=== PATIENT | female | born 1955 | race Asian ===

== ENCOUNTER 2021-05-03 09:55 | Outpatient (CLI) | payer BC, SELFPAY ==
--- NOTE | ~2021-05-03 | MR_ITS ---
EXAMINATION: MR shoulder RT wo con DATE: 05/03/2021 11:00 INDICATION: Impingement syndrome of right shoulder. TECHNIQUE: Magnetic resonance imaging (MRI) of the right shoulder was performed without intravenous c ontrast. Sequences included axial PD-weighted FS FSE, coronal oblique PD-weighted FS FSE and T2-weigh lou FS FSE, and sagittal oblique T2-weighted FS FSE and T1-weighted FSE. COMPARISON: Right shoulder radiographs 01/10/2021 FINDINGS: Coracoacromial arch: The acromion undersurface is curved in morphology (type II). There is mild acromioclavicular joint os teoarthritis. There is mild subacromial/subdeltoid bursitis. Rotator cuff: There is mild supraspinatus and infraspinatus tendinopathy. Teres minor tendon is normal. Subscapular is tendon is normal. There is no asymmetric fatty atrophy of the rotator cuff muscle bellies. There i s degenerative cystic change in the greater tuberosity. Biceps tendon and glenoid labrum: Biceps tendon is in bicipital groove. Intra-articular biceps tendon is normal. There is a tear of sup erior labrum from 11:00 to 12:00 (SLAP tear). Fluid: There is a small glenohumeral joint effusion. Bones/cartilage: There is cartilage surface irregularity of glenoid and humeral head. IMPRESSION: 1. Mild rotator cuff tendinopathy. No tear. 2. Mild glenohumeral joint chondrosis. SLAP tear. 3. Mild acromioclavicular joint osteoarthritis. 4. Small glenohumeral joint effusion. 5. Mild subacromial/subdeltoid bursitis. Reviewed, dictated and finalized at location A. [employer]
== END 2021-05-03 09:56 | disposition home or self-care (01) ==
LOC: ANHIMG 10:04
PROVIDERS: PCP Family Medicine Adolescent Medicine; Visit Provider Orthopaedic Surgery
DX: M75.41 Impingement syndrome of right shoulder (principal); M19.011 Primary osteoarthritis, right shoulder; M75.81 Other shoulder lesions, right shoulder; S43.431A Superior glenoid labrum lesion of right shoulder, initial encounter; M25.411 Effusion, right shoulder; M75.51 Bursitis of right shoulder
CPT/HCPCS: 73221

== ENCOUNTER 2021-07-04 09:37 | Outpatient (CLI) | payer BC, SELFPAY ==
--- NOTE | 2021-07-04 09:45 | ECG_ITS ---
Measurements Intervals [place] Rate: 70 P: -9 NC: 200 QRS: 34 QRSD: 90 T: 28 QT: 390 QTc: 422 Interpretive Statements SINUS RHYTHM INCOMPLETE RIGHT BUNDLE BRANCH BLOCK BASELINE ARTIFACT- I, II, III, AVR, AVL, AVF BORDERLINE ECG Electronically Signed On 07-04-2021 10:25:51 ON SITE NURSE by Peña Mckinney D.O.
== END 2021-07-04 09:38 | disposition home or self-care (01) ==
LOC: ANHSURGERY 09:42
PROVIDERS: PCP Family Medicine Adolescent Medicine; Visit Provider Orthopaedic Surgery
DX: E78.2 Mixed hyperlipidemia (principal); Z01.818 Encounter for other preprocedural examination; I45.10 Unspecified right bundle-branch block
CPT/HCPCS: 93005

== ENCOUNTER 2021-07-06 03:26 | Day surgery (SDC) | payer BC, SELFPAY ==
--- NOTE | 2021-07-02 16:57 | SUR.PREOP ---
Report to the Outpatient Waiting Room, entrance under the green pavilion located off [facility], at time ____0600___ on date _07/06/21 . OR Time: . - You will be asked a series of questions to screen for COVID 19 for your protection. - A mask is required within the hospital. - No visitors are allowed at this time. Preoperative COVID Testing Requirements: No COVID Test needed if: (proof is required; if not received patient will have Rapid Test prior to entry) - Patient has received COVID Vaccine at least 14 days prior to procedure date or - Patient has positive COVID test result within last 90 days of surgery date. COVID Test needed if above criteria is not met If not COVID vaccinated a COVID test must be conducted within 72 hours of surgery and patient is asked to isolate self from time of testing until procedure. You will go to the [facility] for your COVID testing. The [facility] Testing site is located at the corner of [address] [facility]. You will only be called if COVID results are positive and your surgeon may reschedule your elective surgery date. Patients may have clear liquids (water, carbonated beverages, clear teas, apple juice) until 3 hours (0430) prior to surgery with a maximum of 20 ounces. - No food from midnight until time of surgery - Infants may have breast milk until 4 hours before surgery, infant formula 6 hours prior to surgery. - Children will be allowed to drink immediately following surgery. If applicable, please bring a bottle or sippy cup to assist with drinking. Juice, water, soda, and popsicles are readily available. For infants on formula, please bring formula the day of surgery. Pacifiers are allowed. Take the following medications with a SIP of water the morning of surgery: Medications to discontinue per physician Date to take last dose Please no make-up, nail georgian, hairspray, perfume, deodorant, or body powder the day of surgery. No jewelry (including any body piercings) or valuables the day of surgery, leave them at home. Please take a shower or bath the night before, or the morning of, surgery with an antibacterial soap. Wear comfortable, loose fitting clothing. Children are encouraged to wear pajamas. - Jewelry must be removed prior to entering the operating room. Rings and piercings that are not removed may be cut off. - The hospital will not accept responsibility for valuables. - Please leave all valuables, including medications, at home the day of surgery. If you are going home after surgery, a licensed lifter/driver must drive you home. - NO public transportation without another adult. - We recommend that an adult stay with you for 24 hours following discharge. - We also recommend that you do not drive, make important decision, drink alcoholic beverages, or take any drugs that were not prescribed by your health care provider for at least 24 hours after your discharge time. For Pediatric surgeries, we recommend two adults accompany the child home (only one inside the building at this time). Follow any additional instructions given to you from your surgeon. Telephone instructions given to and asked if any additional questions and then verbalized understanding. Patient advised to call surgeon office or pre surgery nurse liaison [phone] if any additional questions.
[2021-07-02 17:06] VITALS: BMI 25.2
[2021-07-06] VITALS (8 sets, daily range): BP systolic 100–135; BP diastolic 50–81; PULSE 64–75; RESP 14–19; TEMP 36.7; O2SAT 97–100
[2021-07-06] MEDS: LACTATED RINGERS 1,000 ML 30 ML IV CONT ×2 (06:43→08:36)
[2021-07-06] MEDS: KETOROLAC 15 MG/ML VIAL (*BKC) IV PUSH (06:43)
[2021-07-06] MEDS: ACETAMINOPHEN 500 MG TABLET 1000 MG PO (06:43)
--- NOTE | 2021-07-06 06:51 | WPDANESEPPF ---
Anes - Initial Pre Proc Eval Procedure: Operation Date: 07/06/21 07:30 Proposed Procedures p Right Shoulder Arthroscopic, Subacromial Decompression, Proceed as Indicated - Naeem Sol MD Date/Time: 07/06/21 06:51 Surgeon: Naeem Sol MD Pre Op Diagnosis: tendonitis of right rotator cuff Patient Data Age: 65 Gender: F Height: 1.6 m Weight: 66 kg Last Vital Signs Temp 36.7 C 07/06/21 06:25 Pulse 75 07/06/21 06:25 Resp 18 07/06/21 06:25 BP 135/81 07/06/21 06:25 Pulse Ox 98 07/06/21 06:25 Allergies Allergy/AdvReac Type Severity Reaction Status Date / Time Penicillins Allergy Unknown RASH Verified 07/06/21 06:29 Home Medications Medication Instructions Recorded Confirmed Type diclofenac sodium 75 mg 75 mg PO BID 06/19/21 07/06/21 History tablet,delayed release rosuvastatin 10 mg tablet 10 mg PO DAILY 06/19/21 07/06/21 History Patient hx anesthesia problems: none Family hx anesthesia problems: none Results Review: All pre-operative results and documents have been reviewed as part of the pre-operative evaluation. [facility] Past Medical History Medical History (Updated 07/06/21 @ 06:52 by Mark Carballo MD) Hyperlipidemia Surgical History Surgical History H/O section History of hysterectomy 2009, [facility] Family History Family History Father Gastric cancer Mother Heart disease Diabetes mellitus Social History Social History Tobacco type: cigarettes Additional smoking assessment comments: QUIT SMOKING ~2006, SMOKED ~20 YEARS ~1/2 PPD Alcohol intake: current Drinks per week: 1 Substance use: never Substance use type: does not use Living arrangements: with family Gender identity (if verbalized by the patient): Female Sexual Orientation (if Verbalized by the Patient): Straight or Heterosexual Spiritual care concerns: No Agree to blood products: Yes Anes - Eval Final PreProcedure Day of Procedure 07/06/21 06:51 Patient weight: overweight Heart: regular rate and rhythm Lungs: clear to auscultation Airway: Mallampati scale class II Neurological: alert and oriented Last oral intake: >/= 8 hours ASA classification: II Emergent: no Anesthetic plan: proceed Anesthesia type and monitoring: general ETT and standard monitoring Results Review: All pre-operative results and documents have been reviewed as part of the pre-operative evaluation. Informed Consent: The patient's anesthetic plan and its attendant risks and benefits were discussed with the patient/family/POA. Questions were solicited and answers provided to the satisfaction of the patient/family/POA.
--- NOTE | 2021-07-06 07:24 | WPDHPUPDATE1 ---
History and Physical Update Update Date/Time: 07/06/21 07:24 History and Physical has been reviewed, including an updated exam of the patient. There are NO changes in the patient's condition. Risks, benefits, and alternatives have been discussed and questions answered. Patient agrees to proceed with procedure.
--- NOTE | 2021-07-06 07:26 | WPDANESPNB ---
Anes - Peripheral Nerve Block Date/Time: 07/06/21 07:26 I have discussed with the patient/family/POA the placement of a peripheral nerve block for post-operative pain management, including associated risks, benefits, complications, and side effects. Alternative methods of post-operative analgesia were detailed. Questions were solicited and answers provided to the satisfaction of the patient/family/POA. Time-Out: A pre-procedural Time-Out was completed immediately before starting the procedure and confirmed: Patient Identification, Site, Procedure, Patient Position and the Availability of Requisite Equipment. Clinical Indications: Acute post-operative pain management requested by the operative surgeon. Nerve Block Insertion Note Anes-nerve block: interscalene right Patient position: supine Needle: 22 gauge, stimulating, insulated echogenic needle. Needle length: 50 mm Technique: ultrasound Injectate: bupivacaine 0.5% with epi 5 mcg/ml (25) and dexamethasone (mg) (8) Observations: tolerated well Complications: none Procedure start time:: 720 Procedure end time:: 727
[2021-07-06] MEDS: ceFAZolin 2 GM/D5W 50 ML 2 GM/50 ML BAG IVPB (07:28)
--- NOTE | 2021-07-06 08:28 | P.OP_ITS ---
Procedure Note - Detailed Date of Procedure 07/06/21 Pre-op Diagnosis 1. Tendonitis of right rotator cuff 2. Impingement syndrome Post-op Diagnosis same Procedure Performed 1. Arthroscopic subacromial debridement and decompression Surgeon Naeem Sol MD [employer] Assistant Judith Zhu PA-C Anesthesia general and regional Findings Low grade bursal tear <15%. Hyperemia. No SLAP tear. Clear evidence for subacromial impingement. Description of Procedure Patient was given an interscalene block in the holding area. Preoperative antibiotics were given. The patient was brought to the operating room. Careful positioning in the beach chair was accomplished. The head neck were carefully positioned. A small bump was placed under the left shoulder. The shoulder was examined. The shoulder was prepped and draped in the usual sterile fashion. Standard posterior and anterior arthroscopic portals were established. The shoulder was inspected. No debridement was necessary. The cuff was intact on the articular side. Significant diffuse hyperemia of the capsule and biceps without tendinosis, SLAP tear, or capsule contracture. Attention was turned to the subacromial space. A complete bursectomy was performed. There was clear bursal thickening, and fraying of the undersurface of the acromial and CA ligament, with a corresponding low grade tear of the bursal side supraspinatus. The acromion was clearly visualized. The coracoacromial ligament was released. Careful acromioplasty was performed, while protecting the deltoid attachment. Loose bone fragments were carefully irrigated from the joint. The arthroscopic instruments were removed. The wounds were closed with interrupted 3-0 Monocryl suture followed by Steri-Strips. A sterile dressing was applied with a sling. The patient was extubated and brought to the recovery room in stable condition. There were no complications. Estimated Blood Loss 5 Complications No immediate complications Condition stable Disposition same day
--- NOTE | 2021-07-06 09:05 | SUR.PHASEI ---
1403 Dr Sol bedside talking to patient
--- NOTE | 2021-07-06 09:17 | SUR.PHASEI ---
PT AWAKE AND ALERT. DENIES PAIN. RESTING QUIETLY.
== END 2021-07-06 10:30 | disposition home or self-care (01) ==
PROVIDERS: PCP Family Medicine Adolescent Medicine; Visit Provider Orthopaedic Surgery
PROC: (CPT 29805; principal; 2021-07-06 07:30)
DX: M75.101 Unspecified rotator cuff tear or rupture of right shoulder, not specified as traumatic (principal); M75.41 Impingement syndrome of right shoulder; G89.18 Other acute postprocedural pain; E78.5 Hyperlipidemia, unspecified; Z87.891 Personal history of nicotine dependence
CPT/HCPCS: 29822; 64415; A4565; A9270; J0690; J1100; J1885; J2250; J2405; J2704; J2710; J3010; J7120

== ENCOUNTER 2022-02-19 00:46 | Day surgery (SDC) | payer BC, SELFPAY ==
[2022-01-31 12:29] VITALS: BMI 24.8
[2022-02-19 08:32] VITALS: BP 140/82; PULSE 76; RESP 20; TEMP 36.7; O2SAT 100; BMI 24.0
[2022-02-19] MEDS: LACTATED RINGERS 1,000 ML 150 ML IV CONT (08:42)
--- NOTE | 2022-02-19 08:44 | PM.HPGS ---
History of Present Illness History of Present Illness Consent: Risks, benefits, and alternatives have been discussed and questions answered. Patient agrees to proceed with procedure. Chief complaint: epigastric pain, neoplasm screening Narrative: Andrew Flores is a 66 year old female Referred for colonoscopy an EGD. Patient desires neoplasia screening colonoscopy. Current weight appetite bowel movements are normal. She denies abdominal pain. She has had no bleeding. Patient also desires EGD. She has intermittent epigastric pain that will worsen on to eating spicy foods. She has tried pantoprazole 40mg p.o. daily over the last 3 months. This seems to help. She also improves on avoiding spicy foods. She is quite concerned about possible H pylori infection. Family history is significant her father had gastric carcinoma. EGD is requested will be performed today. Patient denies any weight loss or bleeding. Review of Systems Review of Systems: Review of systems noncontributory. [facility] Past Medical History Medical History Hyperlipidemia Surgical History Surgical History H/O section History of hysterectomy 2009, [facility] Family History Family History Father Gastric cancer Mother Heart disease Hypertension Sibling Diabetes mellitus Social History Social History Years smoked: 20 Smoking status: Never smoker Tobacco type: cigarettes Additional smoking assessment comments: QUIT SMOKING ~2006, SMOKED ~20 YEARS ~1/2 PPD Alcohol intake: current Drinks per week: 1 Substance use: never Substance use type: does not use Living arrangements: with family Gender identity (if verbalized by the patient): Female Sexual Orientation (if Verbalized by the Patient): Straight or Heterosexual Spiritual care concerns: No Agree to blood products: Yes Meds Home Medications and Allergies Home Medications Medication Instructions Recorded Confirmed Type ergocalciferol (vitamin D2) 1,250 See Rx Instructions .Route 12/03/21 02/04/22 Rx mcg (50,000 unit) capsule .COMPLEX #3 caps rosuvastatin 10 mg tablet See Rx Instructions .Route 12/31/21 02/04/22 Rx .COMPLEX #30 tabs pantoprazole 40 mg tablet,delayed 40 mg PO QAM #30 tabs 01/23/22 02/04/22 Rx release diclofenac sodium 75 mg 75 mg PO DAILY 01/31/22 02/04/22 History tablet,delayed release ciprofloxacin HCl 500 mg tablet 500 mg PO BID #14 tabs 02/13/22 Rx Allergies Allergy/AdvReac Type Severity Reaction Status Date / Time Penicillins Allergy Unknown RASH Verified 02/19/22 08:29 Vital Signs Vital Signs - 24 hr 02/19/22 08:32 Temperature 98.0 F Pulse Rate 76 Respiratory Rate 20 Blood Pressure 140/82 Pulse Oximetry 100 Oxygen Delivery Room Air Exam Narrative: Physical exam reveals patient to be alert. Vital signs stable. HEENT exam is unremarkable. Patient is anicteric. Lungs are clear to auscultation and percussion. Heart is without murmur or extra sounds. Abdomen bowel sounds are present soft nontender with no organomegaly. Digital external rectal exam is normal. Assessment and Plan Assessment and plan (1) Family history of gastric cancer: Code(s): Z80.0 - Family history of malignant neoplasm of digestive organs Status: Acute Assessment and Plan: Patient is father had gastric cancer. Now that she has epigastric pain. Plan for E EGD at this. Further recommend patient is may be given after endoscopy. (2) Encounter for screening for colorectal malignant neoplasm: Code(s): Z12.11 - Encounter for screening for malignant neoplasm of colon; Z12.12 - Encounter for screening for malignant neoplasm of rectum Status: Acute Assessment and Plan: Screenin
--- NOTE | 2022-02-19 08:53 | P.PNAN_ITS ---
Anes - Initial Pre Proc Eval Procedure: Operation Date: 02/19/22 09:30 Proposed Procedures p Esophagogastroduodenoscopy & Screening Colonoscopy - Jason Sprague MD Date/Time: 02/19/22 08:53 Surgeon: Jason Sprague MD Pre Op Diagnosis: epigastric pain, neoplasm screening Patient Data Age: 66 Gender: F Height: 1.6 m Weight: 61.6 kg Last Vital Signs Temp 98.0 F 02/19/22 08:32 Pulse 76 02/19/22 08:32 Resp 20 02/19/22 08:32 BP 140/82 02/19/22 08:32 Pulse Ox 100 02/19/22 08:32 O2 Del Method Room Air 02/19/22 08:32 Allergies Allergy/AdvReac Type Severity Reaction Status Date / Time Penicillins Allergy Unknown RASH Verified 02/19/22 08:29 Home Medications Medication Instructions Recorded Confirmed Type ergocalciferol (vitamin D2) 1,250 See Rx Instructions .Route 12/03/21 02/04/22 Rx mcg (50,000 unit) capsule .COMPLEX #3 caps rosuvastatin 10 mg tablet See Rx Instructions .Route 12/31/21 02/04/22 Rx .COMPLEX #30 tabs pantoprazole 40 mg tablet,delayed 40 mg PO QAM #30 tabs 01/23/22 02/04/22 Rx release diclofenac sodium 75 mg 75 mg PO DAILY 01/31/22 02/04/22 History tablet,delayed release ciprofloxacin HCl 500 mg tablet 500 mg PO BID #14 tabs 02/13/22 Rx Patient hx anesthesia problems: none Family hx anesthesia problems: none Results Review: All pre-operative results and documents have been reviewed as part of the pre- operative evaluation. [facility] Past Medical History Medical History Hyperlipidemia Surgical History Surgical History H/O section History of hysterectomy 2009, [facility] Family History Family History Father Gastric cancer Mother Heart disease Hypertension Sibling Diabetes mellitus Social History Social History Years smoked: 20 Smoking status: Never smoker Tobacco type: cigarettes Additional smoking assessment comments: QUIT SMOKING ~2006, SMOKED ~20 YEARS ~1/2 PPD Alcohol intake: current Drinks per week: 1 Substance use: never Substance use type: does not use Living arrangements: with family Gender identity (if verbalized by the patient): Female Sexual Orientation (if Verbalized by the Patient): Straight or Heterosexual Spiritual care concerns: No Agree to blood products: Yes Anes - Eval Final PreProcedure Day of Procedure 02/19/22 08:53 Patient weight: normal Heart: regular rate and rhythm Lungs: clear to auscultation Airway: Mallampati scale class II Neurological: alert and oriented Last oral intake: >/= 8 hours ASA classification: II Emergent: no Anesthetic plan: proceed Anesthesia type and monitoring: general GIVS and standard monitoring Results Review: All pre-operative results and documents have been reviewed as part of the pre- operative evaluation. Informed Consent: The patient's anesthetic plan and its attendant risks and benefits were discussed with the patient/family/POA. Questions were solicited and answers provided to the satisfaction of the paulo
--- NOTE | 2022-02-19 09:23 | SUR.OPER ---
EGD ended at 916. Colonoscopy started at 922.
[2022-02-19 09:35] VITALS: BP 92/57; PULSE 69; RESP 15; O2SAT 97
[2022-02-19 09:45] VITALS: BP 90/60; PULSE 61; RESP 14; O2SAT 97
[2022-02-19 09:55] VITALS: BP 112/65; PULSE 58; RESP 13; O2SAT 100
== END 2022-02-19 10:01 | disposition home or self-care (01) ==
PROVIDERS: PCP Family Medicine Adolescent Medicine; Visit Provider Internal Medicine Gastroenterology
PROC: 0DJ08ZZ Inspection of Upper Intestinal Tract, Via Natural or Artificial Opening Endoscopic (ICD-10-PCS; CPT 43235; principal; 2022-02-19 09:30)
DX: Z12.11 Encounter for screening for malignant neoplasm of colon (principal); K64.8 Other hemorrhoids; R10.13 Epigastric pain; E78.5 Hyperlipidemia, unspecified
CPT/HCPCS: 45378; 43239; 87081; J2704; J7120

== ENCOUNTER → 2022-03-18 10:03 | Outpatient (CLI) | payer BC, SELFPAY ==
--- NOTE | ~2022-03-18 | MM_ITS ---
EXAMINATION: MM screening davey BI w nigel HISTORY: Screening TECHNIQUE: Craniocaudal and mediolateral oblique 3-D tomosynthesis images were obtained and synthetic 2-D images were generated. CAD analysis was submitted and interpreted. COMPARISON: Comparison to multiple prior studies sequentially, with oldest reviewed study dated 07/2012. BREAST PARENCHYMAL COMPOSITION: The breasts are heterogeneously dense, which may obscure small masses . FINDINGS: There is no evidence of suspicious mass, calcification, or architectural distortion to sugg est malignancy in either breast. There has been no suspicious interval change. IMPRESSION: 1. No mammographic evidence of malignancy. 2. Recommend routine screening mammography in one year. BI-RADS Category 1: Negative Reviewed, dictated and finalized at location A.
--- NOTE | ~2022-03-18 | DEXA_ITS ---
Bone Density Report Name: NICHOLE GARG Age: 66 Sex: Female Ethnicity: Date of : 1955 Indication: osteopenia; hysterectomy; postmenopausal Referring Provider: DENEEN LOUIS Study: Bone densitometry was performed. Exam Date: March 18, 2022 Accession number: [id number] Bone Density: Region BMD T-score Z-score Classification AP Spine (L1-L4) 0.862 -1.7 0.1 Osteopenia Femoral Neck (Left) 0.718 -1.2 0.3 Osteopenia Total Hip (Left) 0.866 -0.6 0.6 Normal Femoral Neck (Right) 0.640 -1.9 -0.4 Osteopenia Total Hip (Right) 0.805 -1.1 0.1 Osteopenia Total Hip Mean 0.836 -0.9 0.4 Normal World Health Organization criteria for BMD impression classify patients as: Normal (T-score at or above -1.0), Osteopenia (T-score between -1.0 and -2.5), or Osteoporosis (T-score at or below -2.5). 10-year Fracture Risk(1): Major Osteoporotic Fracture 5.3% Hip Fracture 0.7% Reported Risk Factors: [place] (), Neck BMD=0.640, BMI=23.4 (1) FRAX(R) Version 3.08. Fracture probability calculated for an untreated patient. Fracture probability may be lower if the patient has received treatment. Previous Exams: Region Exam Age BMD T-score BMD Change BMD Change Date g/cm2 vs Baseline vs Previous AP Spine(L1-L4) 03/18/2022 66 0.862 -1.7 -0.064* -0.064* 10/19/2012 57 0.925 -1.1 Total Hip(Left) 03/18/2022 66 0.866 -0.6 -0.036* -0.036* 10/19/2012 57 0.903 -0.3 Total Hip(Right) 03/18/2022 66 0.805 -1.1 -0.071* -0.071* 10/19/2012 57 0.876 -0.5 *Denotes significance at 95% confidence level, LSC for AP Spine = 0.022 g/cm2, LSC for Total Hip = 0.027 g/cm2 Clinical Information Provided by Patient: Has used the following medications: Vitamin D Has the following medical conditions: Hysterectomy Patient maximum height was 64 Menopause Age: 51 Does not regularly consume dairy products Drinks caffeinated beverages Onset of menses at age 18 Number of children 2 Impression: The patient has low bone mass, based on the Right Femoral Neck T-score. The patient has an estimated ten-year risk of hip fracture of 0.7% and an estimated ten-year risk of major fracture of 5.3%, based on the WHO FRAX algorithm. The BMD for the AP Spine(L1-L4) decreased, changing by -0.064 since the last DXA exam. The BMD for the Total Hip(Left) decreased, changing by -0.036 since the last DXA exam. The BMD for the Total Hip
== END ==
PROVIDERS: PCP Family Medicine Adolescent Medicine; Visit Provider Family Medicine Adolescent Medicine
DX: Z12.31 Encounter for screening mammogram for malignant neoplasm of breast (principal); Z78.0 Asymptomatic menopausal state; M85.88 Other specified disorders of bone density and structure, other site; M85.852 Other specified disorders of bone density and structure, left thigh; M85.851 Other specified disorders of bone density and structure, right thigh
CPT/HCPCS: 77063; 77067; 77080

== ENCOUNTER → 2022-11-06 08:16 | Outpatient (CLI) | payer BC, SELFPAY | PROVIDERS: PCP Family Medicine Adolescent Medicine; Visit Provider Family Medicine Adolescent Medicine | DX: M25.562 Pain in left knee (principal) | CPT/HCPCS: 73562 ==

== ENCOUNTER → 2023-05-16 10:40 | Outpatient (CLI) | payer BC, SELFPAY ==
--- NOTE | ~2023-05-16 | MM_ITS ---
EXAMINATION: MM screening davey BI w nigel HISTORY: Screening mammogram TECHNIQUE: Craniocaudal and mediolateral oblique 3-D tomosynthesis images were obtained and synthetic 2-D images were generated. CAD analysis was submitted and interpreted. COMPARISON: 03/18/2022, 07/07/2015 bilateral screening mammogram examinations BREAST PARENCHYMAL COMPOSITION: The breasts are heterogeneously dense, which may obscure small masses . FINDINGS: There are possible left breast masses. Diagnostic left mammogram and left breast ultrasoun d are recommended.] No suspicious mass, architectural distortion, malignant, skin thickening or retraction of the right b reast is detected. IMPRESSION: 1. Possible left breast masses 2. Diagnostic left mammogram and left breast ultrasound examination are recommended BI-RADS Category 0: Incomplete: Needs additional imaging evaluation. Reviewed, dictated and finalized at location A. HEADER IMPRESSION: 1. Possible left breast masses 2. Diagnostic left mammogram and left breast ultrasound examination are recomme nded BI-RADS Category 0: Incomplete: Needs additional imaging evaluation.
== END ==
PROVIDERS: PCP Family Medicine Adolescent Medicine; Visit Provider Family Medicine Adolescent Medicine
DX: Z12.31 Encounter for screening mammogram for malignant neoplasm of breast (principal); R92.8 Other abnormal and inconclusive findings on diagnostic imaging of breast
CPT/HCPCS: 77063; 77067

== ENCOUNTER → 2023-06-09 08:18 | Outpatient (CLI) | payer BC, SELFPAY ==
--- NOTE | ~2023-06-09 | MMUS_ITS ---
EXAMINATION: MM diagnostic davey LT w nigel, US breast LT limited HISTORY: Possible left breast masses on screening mammogram TECHNIQUE: Additional 3-D tomosynthesis images of the left breast were performed and synthetic 2-D im ages were generated. CAD analysis was submitted and interpreted. High resolution limited left breast ultrasound was performed. COMPARISON: 05/16/2023, 03/18/2022, 07/07/2015 FINDINGS: MAMMOGRAPHIC FINDINGS: There is a 5 mm irregular equal density mass in the middle third of the upper outer quadrant of the b reast at the 2:00 location, 6 cm from the nipple. There is a return to baseline fibroglandular appear ance with spot compression of the subareolar left breast in the area questioned on screening mammogra m. There is a mammographically stable 10 mm obscured mass at the 5:00 location, 4 cm from the nipple. ULTRASOUND: There is a 5 mm x 4 mm oval, hypoechoic, not parallel mass with indistinct margins at the 2:00 locati on, 6 cm from the nipple which demonstrates internal vascularity but no definite posterior features. Multiple small circumscribed, oval, parallel, hypoechoic masses are seen in the upper outer quadrant of the breast which measure up to 3 mm. There is a 10 mm x 5 mm oval, circumscribed, parallel, hypoec hoic mass with no posterior features or internal vascularity at the 5:00 location, 2 cm from the nipp le corresponding to the mammographically stable mass. IMPRESSION: 1. Indeterminate mass in the upper outer quadrant of the left breast at the 2:00 location. 2. Ultrasound-guided biopsy is recommended. BI-RADS category 4, suspicious findings. Reviewed, dictated and finalized at location A. MENT MAN IMPRESSION: 1. Indeterminate mass in the upper outer quadrant of the left breast at the 2:0 0 location. 2. Ultrasound-guided biopsy is recommended. BI-RADS category 4, suspicious findings.
== END ==
PROVIDERS: PCP Family Medicine Adolescent Medicine; Visit Provider Family Medicine Adolescent Medicine
DX: R92.8 Other abnormal and inconclusive findings on diagnostic imaging of breast (principal)
CPT/HCPCS: 76642; 77061; 77065; G0279

== ENCOUNTER 2023-06-18 09:10 | Outpatient (CLI) | payer BC, SELFPAY ==
--- NOTE | ~2023-06-18 | MMUS_ITS ---
US breast biopsy LT w image, MM post biopsy invasive LT EXAMINATION: US GUIDED NEEDLE BIOPSY WITH VACUUM ASSISTANCE DATE: 06/18/2023 11:11 HOSIERY OPERATOR INDICATION: Mass seen in the left breast on prior examination. Ultrasound-guided core biopsy is requ ested to evaluate for malignancy. TECHNIQUE AND FINDINGS: The risks and potential benefits of the procedure were discussed with the patient, and written inform ed consent was obtained. After sterile preparation of the left breast, 1% lidocaine was utilized for local anesthesia. 1% lidocaine with epinephrine was used for deep anesthesia. A 10G vacuum-assisted biopsy gun needle was advanced through to the outer edge of the region of inter est from a superior approach utilizing sonographic guidance. A total of 4 tissue core samples were o btained through the lesion. An Inrad tissue marker clip was then placed at the biopsy site. Hemostas is was achieved. The patient tolerated procedure well and there was no evidence of immediate complication. The patien t was given verbal instructions partly is from the department. Left breast mammograms to document ti ssue marker clip placement. The tissue samples were submitted to surgical pathology for histologic an alysis. IMPRESSION: 1. Successful ultrasound-guided vacuum-assisted biopsy of left breast mass with tissue marker placem ent. Please refer to pathology report for histologic analysis. Reviewed, dictated and finalized at location A. ERY OPERATOR IMPRESSION: 1. Successful ultrasound-guided vacuum-assisted biopsy of left breast mass wit h tissue marker placement. Please refer to pathology report for histologic anal ysis.
== END 2023-06-18 09:11 | disposition home or self-care (01) ==
PROVIDERS: PCP Family Medicine Adolescent Medicine; Visit Provider Family Medicine Adolescent Medicine
DX: C50.412 Malignant neoplasm of upper-outer quadrant of left female breast (principal)
CPT/HCPCS: 19083; 88305; 88342; 88365; A4648

== ENCOUNTER 2023-07-02 14:35 | Outpatient (CLI) | payer BC, SELFPAY ==
--- NOTE | ~2023-07-02 | XR_ITS ---
XR elbow RT 2V DATE: 07/02/2023 14:50 INDICATION: Chronic pain. Medial epicondylitis. TECHNIQUE: AP and lateral views COMPARISON: None FINDINGS: No fracture or dislocation or joint effusion. No periosteal reaction or bone destruction. IMPRESSION: Negative Reviewed, dictated and finalized at location B. OR AIR DIRECTOR IMPRESSION: Negative
== END 2023-07-02 14:36 | disposition home or self-care (01) ==
LOC: ANHIMG 14:37
PROVIDERS: PCP Family Medicine Adolescent Medicine; Visit Provider Orthopaedic Surgery
DX: M77.01 Medial epicondylitis, right elbow (principal)
CPT/HCPCS: 73070

== ENCOUNTER 2024-05-05 11:14 | Outpatient (CLI) | payer BC, SELFPAY ==
--- NOTE | ~2024-05-05 | XR_ITS ---
Right elbow Technique: AP and lateral views were obtained. Clinical History: Medial epicondylitis COMPARISON: 07/02/2023 Findings: No acute fracture or dislocation is seen. Osseous alignment is anatomic. Joint spaces are p reserved. There is no displacement of the fat pads, and soft tissues are unremarkable. Impression: Unremarkable radiographs. Reviewed, dictated and finalized at location . ING MACHINE OPERATOR Impression: Unremarkable radiographs.
== END 2024-05-05 11:15 | disposition home or self-care (01) ==
PROVIDERS: PCP Family Medicine Adolescent Medicine; Visit Provider Orthopaedic Surgery
DX: M77.01 Medial epicondylitis, right elbow (principal)
CPT/HCPCS: 73070

== ENCOUNTER 2024-06-03 00:47 | Day surgery (SDC) | payer BC, SELFPAY ==
--- NOTE | 2024-05-24 12:24 | PC.NURSE ---
Report to the Outpatient Waiting Room, entrance under the green pavilion located off [facility], at time _11 am on date _06/03/24 . Planned Procedure Time: __1:00 pm .? Time changes happen often and if your time is changed the preop area will call you the afternoon before. - You and your visitor will be asked to self-screen and do not enter if you have any COVID symptoms. Please call surgeon if you need to reschedule. - A mask is optional within the hospital at this time. Patients may have clear liquids (water, carbonated beverages, clear teas, apple juice) until 3 hours prior to surgery(10 am) with a maximum of 20 ounces. - No food from midnight until time of surgery and no smoking. This includes no chewing gum, candy or mints. - Infants may have breast milk until 4 hours before surgery, formula 6 hours prior to surgery. - Children will be allowed to drink immediately following surgery.? If applicable, please bring a bottle or sippy cup to assist with drinking. Juice, water, soda, and popsicles are readily available.? For infants on formula, please bring formula the day of surgery.? Pacifiers are allowed. Take only the following medications with a SIP of water on the morning of surgery: __NONE DO NOT STOP ANY OF YOUR OTHER PRESCRIPTION MEDICATIONS PRIOR TO SURGERY EXCEPT THE FOLLOWING Medications to discontinue per physician ___HOLD ASPIRIN AND IBUPROFEN 7 DAYS PRE OP LAST DOSE 05/26/24 HOLD ALL VITAMINS 3 DAYS PRE OP LAST DOSE 05/30/24 MAY TAKE TYLENOL IF NEEDED FOR PAIN Please no make-up, nail bangladeshi, hairspray, perfume, deodorant, or body powder the day of surgery.? No jewelry (including any body piercings) or valuables the day of surgery, leave them at home.? Please take a shower or bath the night before, or the morning of, surgery with an antibacterial soap.? Wear comfortable, loose fitting clothing.? Children are encouraged to wear pajamas. - Jewelry must be removed prior to entering the operating room.? Rings and piercings that are not removed may be cut off. - The hospital will not accept responsibility for valuables.? - Please leave all valuables, including medications, at home the day of surgery. If you are going home after surgery, a licensed pole truck driver must drive you home.? - NO public transportation without another adult if you receive anesthesia. - We recommend that an adult stay with you for 24 hours following discharge. - We also recommend that you do not drive, make important decision, drink alcoholic beverages, or take any drugs that were not prescribed by your health care provider for at least 24 hours after your discharge time. Follow any additional instructions given to you from your surgeon. Telephone instructions given to __PATIENT and asked if any additional questions and then verbalized understanding. Patient advised to call surgeon office or pre surgery nurse liaison [phone] if any additional questions.
[2024-05-24 12:39] VITALS: BMI 24.0
[2024-06-03] VITALS (8 sets, daily range): BP systolic 102–135; BP diastolic 60–75; PULSE 64–88; RESP 13–19; TEMP 36.1–36.3; O2SAT 96–100
--- NOTE | 2024-06-03 07:18 | WPDHPUPDATE1 ---
History and Physical Update Update Date/Time: 06/03/24 07:18 History and Physical has been reviewed, including an updated exam of the patient. There are NO changes in the patient's condition. Risks, benefits, and alternatives have been discussed and questions answered. Patient agrees to proceed with procedure.
--- NOTE | 2024-06-03 11:18 | P.PNAN_ITS ---
Anes - Initial Pre Proc Eval Procedure: Operation Date: 06/03/24 13:00 Proposed Procedures p Right Medial Epicondyle Debridement - Naeem Sol MD Date/Time: 06/03/24 11:18 Surgeon: Naeem Sol MD Pre Op Diagnosis: Right medial epicondylitis Patient Data Age: 68 Gender: F Height: 1.63 m Weight: 63.6 kg Allergies Allergy/AdvReac Type Severity Reaction Status Date / Time Penicillins Allergy Unknown RASH Verified 05/24/24 12:16 Home Medications ?Medication ?Instructions ?Recorded ?Confirmed ?Type triamcinolone acetonide 0.1 % 1 applic topical TID #30 grams 11/20/22 05/24/24 Rx topical cream aspirin 81 mg tablet,delayed 81 mg PO DAILY #90 tabs 04/07/23 05/24/24 Rx release (Adult Aspirin Regimen) rosuvastatin 10 mg tablet 10 mg PO DAILY #90 tabs 09/03/23 05/24/24 Rx ergocalciferol (vitamin D2) 1,250 See Rx Instructions .Route 12/15/23 05/24/24 Rx mcg (50,000 unit) capsule .COMPLEX #3 caps anastrozole 1 mg tablet 1 mg PO DAILY 05/24/24 05/24/24 History ascorbic acid (vitamin C) 500 mg 1 g PO DAILY 05/24/24 05/24/24 History tablet (C-500) ibuprofen 200 mg tablet (Advil) 400 mg PO Q6H pain 05/24/24 05/24/24 History hydrocodone 5 mg-acetaminophen 325 1 - 2 tablet PO Q4-6H PRN pain 7 06/03/24 Rx mg tablet days #30 tabs Patient hx anesthesia problems: none Family hx anesthesia problems: none Results Review: All pre-operative results and documents have been reviewed as part of the pre- operative evaluation. PMFSH Past Medical History Medical History Hyperlipidemia Surgical History Surgical History History of arthroscopic surgery of shoulder Right shoulder, July 2021. H/O section History of hysterectomy 2009, [facility] Family History Family History Father Gastric cancer Mother Heart disease Hypertension Sibling Diabetes mellitus Social History Social History Smoking packs per day: 0.5 Smoking cigarettes per day: 10.0 Years smoked: 20 Smoking pack-years: 10.00 Smoking status: Former smoker Tobacco type: cigarettes Smoking end date: 05/19/06 Additional smoking assessment comments: QUIT SMOKING ~2006, SMOKED ~20 YEARS ~1/2 PPD Alcohol intake: current Drinks per week: 1 Substance use: never Substance use type: does not use Do You Feel Safe in your Home?: Yes Lack of Transportation: No Lack of Food: Never True Current Housing: I Have Housing Concerned About Future Housing: No Difficulty Paying Gas/Electric Bills: No Difficulty Paying for Meds: No Currently Unemployed: No Education: High School Diploma/GED Difficulty w/ Childcare or Family Care: No Living arrangements: with family Occupation/Education: unemployed Gender identity (if verbalized by the patient): Female Sexual Orientation (if Verbalized by the Patient): Straight or Heterosexual Spiritual care concerns: No Agree to blood products: Yes Anes - Eval Final PreProcedure Day of Procedure 06/03/24 11:18 Patient weight: normal Heart: regular rate and rhythm Lungs: clear to auscultation Airway: Mallampati scale class II Neurological: alert and oriented Last oral intake: >/= 8 hours ASA classification: III Emergent: no Anesthetic plan: proceed Anesthesia type and monitoring: general LMA and standard monitoring Results Review: All pre-operative results and documents have been reviewed as part of the pre- operative evaluation. Informed Consent: The patient's anesthetic plan and its attendant risks and benefits were discussed with the patient/family/POA. Questions were solicited and answers provided to the satisfaction of the patient/family/POA.
[2024-06-03] MEDS: ACETAMINOPHEN 500 MG TABLET 1000 MG PO (11:55)
[2024-06-03] MEDS: LACTATED RINGERS 1,000 ML 30 ML IV CONT (12:10)
[2024-06-03] MEDS: KETOROLAC 15 MG/ML VIAL (*BKC) IV PUSH (12:42)
[2024-06-03] MEDS: ceFAZolin 2 GM/D5W 50 ML 2 GM/50 ML BAG IVPB (12:50)
[2024-06-03] MEDS: BUPIVACAINE/EPINEPHRINE 0.5% 50 ML VIAL 20 ML INFILTRATE (13:14)
--- NOTE | 2024-06-03 16:18 | W.PM.PROC2 ---
Procedure Note - Detailed Date of Procedure 06/03/24 Pre-op Diagnosis Right elbow medial epicondylitis Post-op Diagnosis Same Procedure Performed Right elbow medial epicondylitis debridement Surgeon Naeem Sol MD Anesthesia General Indications Recalcitrant disease for over 1 year despite conservative treatment including physical therapy, injections, and anti-inflammatory medication. Findings Small spur at the the site of maximal pain and tendon degeneration. Description of Procedure The patient was brought to the operating room. Preoperative antibiotics were given. A general anesthetic was administered. The arm was prepped and draped in the usual sterile fashion with a well-padded tourniquet on the arm. The limb was exsanguinated and the tourniquet inflated to 225 milliliters of mercury. A longitudinal incision was created over the pathological site at the medial epicondyle. The flexor pronator mass was identified. A split was taken down through the interval between the pronator teres and the flexor carpi the radialis. Degenerative pathologic tendon was identified and excised sharply. A tiny spur was palpable at the site of insertion of this tissue. It was debrided with the rongeur and abraded with a rasp. The scratch test was to confirm complete excision of pathologic tissue. The ulnar nerve was assessed for stability. It was left in situ. The flexor pronator muscle defect was repaired with #1 Vicryl suture. The skin was closed with interrupted 3-0 Monocryl suture followed by running 4-0 Monocryl suture and Steri-Strips. Sterile dressing was applied with a wrist splint. The patient was extubated and brought to the recovery room in stable condition. Estimated Blood Loss 5 Drains No Packing No Pathology None sent Complications No immediate complications Condition Stable Disposition PACU [facility] Billing Surgery - Charge Forward: Surgery Billing
== END 2024-06-03 15:45 | disposition home or self-care (01) ==
PROVIDERS: PCP Family Medicine Adolescent Medicine; Visit Provider Orthopaedic Surgery
PROC: (CPT 24110; principal; 2024-06-03 13:00)
DX: M77.01 Medial epicondylitis, right elbow (principal); Z87.891 Personal history of nicotine dependence
CPT/HCPCS: 24358; A9270; J0690; J1100; J1885; J2003; J2250; J2371; J2405; J2704; J3010; J7120